=== PATIENT | female | born 1945 | race Caucasian/White ===

== ENCOUNTER → 2016-08-30 | Outpatient (CLI) | payer MEDICARE, BC ==
--- NOTE | ~2016-08-30 | CT57 ---
[facility] A Service of [facility] & [facility] RADIOLOGY TEXT RESULTS PATIENT: TADEO MILTON [facility] UNIT #: [id number] AGE: [address]: LEIDY ALVARADO MD SEX: F ORDER DR: [id number] [facility] [address] [place], [place] [address] [id number] O MR#: [id number] Acc #: [id number] NAME: TADEO MILTON : 1945 SEX: F STUDY DATE/TIME: 08/30/2016 13:09 UNIT: [facility] ROOM: STUDY DESCRIPTION: CT Chest Wo Cont Attending Physician: Leidy Alvarado M.D. Referring Physician: Leidy Alvarado M.D. Ordering Physician: Physician Non-Staff Primary Care Physician: Braulio Murphy M.D. MEDICAL IMAGING REPORT This report is preliminary unless electronic signature is present EXAM CT chest without contrast 08/30/2016 1309 hours HISTORY 70-year-old woman for 6-month follow up of right lung nodules. No current chest complaints. COMPARISON Chest CT 02/16/2016, 08/18/2015, 04/23/2015 and PET/CT 02/24/2015 TECHNIQUE Helical noncontrasted images were obtained from the lung apices through the adrenal glands. Sagittal and coronal reconstructions were performed. Total exam DLP 433 mGy-cm. This CT exam was performed with one or more of the following radiation dose reduction techniques: automatic control, adjustment of mA and/or kV according to patient size, and iterative reconstruction. FINDINGS Images through the thoracic inlet demonstrate no thyroid enlargement. There is a vague 6 mm low-density area in the posterior inferior aspect of the right lobe unchanged and likely benign. There is no supraclavicular adenopathy. Images through the chest demonstrate benign calcified right paratracheal, prevascular, subcarinal and bilateral hilar and infrahilar nodes. There is no pathologic adenopathy. There are coarse coronary calcifications with coronary stents. The aorta is normal in caliber. Cardiac chambers, pericardium and esophagus are normal. Lungs demonstrate significant underlying centrilobular emphysema more severely involving the upper lobes than the lower lobes. Again demonstrated is a irregularly marginated ovoid nodule in the right apex with some calcifications. This measures 2.0 x 1.2 cm and is stable [facility] & [facility] RADIOLOGY TEXT RESULTS PATIENT: TADEO MILTON LOCATION: [facility] : 41 UNIT #: [id number] AGE: [address]: LEIDY ALVARADO MD SEX: F ORDER DR: back to 02/18/2015. This was PET avid on prior PET/CT and is worthy of continued attention on 6-month followup. There is irregularly marginated somewhat bandlike ovoid density in the right lower lobe measuring 2.2 x 1.1 cm. This previously measured 2.0 x 1 cm on 02/16/2016 but only 1.9 x 1 cm on 02/18/2015. This was not positive on the prior PET CT. It has increased slightly in size since 2014 and continued attention on 6-month followup is recommended. There is stable linear scar in the lingula. No new nodules are seen. Limited views through the upper abdomen demonstrate no liver lesion. The right adrenal gland is normal. There is a stable benign low-density left adrenal nodule likely an adenoma. IMPRESSION 1. The right apical irregular marginated calcium containing nodule is stable at 2.0 x 1.2 cm. This is unchanged dating back to 02/18/2015 but was positive on prior PET/CT and continued followup in 6 months is recommended. 2. The ovoid bandlike density in the right lower lobe measures 2.2 x 1.1 cm which is similar to 02/16/2016 but increased from 02/18/2015 where it measured 1.9 x 1 cm. This was not positive on prior PET/CT. Continued CT followup in 6 months is recommended. 3. Stable emphysematous changes. 4. Stable low-density left adrenal nodule likely benign adenoma. Dictated by... Adriana Boudreaux M.D. THIS IS AN ELECTRONICALLY VERIFIED REPORT Adriana Boudreaux M.D. at 08/31/2016 9:25 AM CARLENE/william TD: 08/30/2016 14:44 JOB #: [id number] MEDICAL IMAGING REPORT Page 1 of 1 COPY
== END | disposition home or self-care (01) ==
LOC: CCAT 12:35
DX: R91.8 Other nonspecific abnormal finding of lung field (principal); R91.1 Solitary pulmonary nodule; J98.4 Other disorders of lung; E27.8 Other specified disorders of adrenal gland
CPT/HCPCS: 71250